=== PATIENT | female | born 2000 | race African-American/Black ===

== ENCOUNTER 2019-05-25 11:53 | Emergency (ER) | payer SELFPAY ==
[2019-05-25 12:16] VITALS: BP 150/69
--- NOTE | 2019-05-25 13:09 | ER Document Report ---
HPI - HPI Time Seen by Provider: 05/25/19 12:48 Pain Level: 5 Context: Healthy 19-year-old female presents to the emergency department with left lower leg pain. Patient states that it is slightly swollen, painful, slightly red. This is been going on for 2 days. Patient states she has no fevers or chills, no body aches, no recent illness, is not on oral contraceptives, is not a smoker. No recent lengthy travel or immobilization, no cancer. No nausea or vomiting. No other complaints - REPRODUCTIVE Reproductive: DENIES: : - MUSCULOSKELETAL Musculoskeletal: REPORTS: Extremity pain - left leg Past Medical History - Social History Smoking Status: Never Smoker Frequency of alcohol use: None Drug Abuse: None Family History: None Patient has suicidal ideation: No Patient has homicidal ideation: No Vertical Provider Document - CONSTITUTIONAL Notes: PHYSICAL EXAMINATION: Reviewed vital signs and charting by RN GENERAL: Alert, interacts well. No acute distress. HEAD: Normocephalic, atraumatic. EYES: Pupils equal and round. Extraocular movements intact. ENT: Oral mucosa moist, tongue midline. EXTREMITIES: Moves all 4 extremities spontaneously. No edema, No cyanosis. PSYCH: Normal affect, normal mood. SKIN: Warm, dry, normal turgor. 2 areas on the lateral and posterior left lower extremity with areas of induration approximately 2 cm. - INFECTION CONTROL TRAVEL OUTSIDE OF THE [place] IN LAST 30 DAYS: No Course - Re-evaluation Re-evalutation: 05/25/19 13:08 Well-appearing and nontoxic, vital signs within normal limits. Ultrasound did not show any fluid pocket or any area amenable to incision and drainage. Patient will be placed on a 5-day course of Keflex and has been given strict return precautions. Patient is not an IV drug user or has no history of MRSA. She is PERC negative. Stable for discharge. - Vital Signs Vital signs: Temp Pulse Resp BP Pulse Ox 98.6 F 79 18 150/69 H 99 05/25/19 12:15 05/25/19 12:15 05/25/19 12:15 05/25/19 12:15 05/25/19 12:15 Discharge - Discharge Clinical Impression: Skin infection Condition: Good Disposition: HOME, SELF-CARE Additional Instructions: You were seen in the emergency department today for a skin infection on your left lower leg. They look like they could be developing abscesses but ultrasound did not show any fluid pockets there is nothing to incise here today. I am going to put you on a 5-day course of antibiotics to help clear up this infection. As we talked about, the antibiotics take 36 to 48 hours to start taking effect so please continue to take them until they are gone. You may not see resolution for a couple of days. Also, put hot compresses over the areas for 10 to 15 minutes at a time every couple of hours. Please return to the emergency department if you develop fevers, worsening pain, swelling, redness after being on antibiotics for 2 or 3 days, acute leg weakness, or you have any other concerning symptoms.
== END 2019-05-25 13:08 | disposition home or self-care (01) ==
LOC: ER 11:53
DX: L08.9 Local infection of the skin and subcutaneous tissue, unspecified (principal); M79.662 Pain in left lower leg
CPT/HCPCS: 99283

== ENCOUNTER 2019-09-06 18:06 | Emergency (ER) | payer SELFPAY ==
--- NOTE | 2019-09-06 18:15 | ER Document Report ---
HPI - HPI Time Seen by Provider: 09/06/19 18:11 Onset: Last week Onset/Duration: Persistent Quality of pain: Burning Pain Level: 3 Context: Patient presents complaining of hematuria and dysuria. Patient states she had symptoms for the past week. No fever. Patient reports mild suprapubic tenderness. No nausea or vomiting. Associated Symptoms: denies: Fever, Nausea, Vomiting Exacerbated by: Denies Relieved by: Denies Similar symptoms previously: Yes Recently seen / treated by doctor: No - ROS ROS below otherwise negative: Yes Systems Reviewed and Negative: Yes All other systems reviewed and negative - CONSTITUTIONAL Constitutional: DENIES: Fever, Chills - GASTROINTESTINAL Gastrointestinal: REPORTS: Abdominal Pain, Nausea - URINARY Urinary: REPORTS: Dysuria - REPRODUCTIVE LMP: 08/24/19 Reproductive: DENIES: : - MUSCULOSKELETAL Musculoskeletal: DENIES: Back Pain - DERM Skin Color: Normal Skin Problems: None Past Medical History - General Information source: Patient - Social History Smoking Status: Never Smoker Chew tobacco use (# tins/day): No Frequency of alcohol use: None Drug Abuse: None Family History: None Patient has suicidal ideation: No Patient has homicidal ideation: No - Medical History Medical History: Negative Surgical Hx: Negative Vertical Provider Document - CONSTITUTIONAL Agree With Documented VS: Yes Exam Limitations: No Limitations General Appearance: WD/WN, No Apparent Distress - INFECTION CONTROL TRAVEL OUTSIDE OF THE [place] IN LAST 30 DAYS: No - HEENT HEENT: Atraumatic, Normocephalic - NECK Neck: Normal Inspection, Supple - RESPIRATORY Respiratory: Breath Sounds Normal, No Respiratory Distress - CARDIOVASCULAR Cardiovascular: Regular Rate, Regular Rhythm - GI/ABDOMEN Gastrointestinal: Abdomen Soft, Abdomen Tender - Suprapubic - BACK Back: Normal Inspection. negative: CVA Tenderness-Right, CVA Tenderness-Left - MUSCULOSKELETAL/EXTREMETIES Musculoskeletal/Extremeties: KARLA FROST - NEURO Level of Consciousness: Awake, Alert, Appropriate Motor/Sensory: No Motor Deficit - DERM Integumentary: Warm, Dry, No Rash Course - Re-evaluation Re-evalutation: 09/06/19 19:21 Patient with UTI, no concern for obstructive uropathy. No flank tenderness, no fever. Patient with stable vital signs. Urine will be cultured at this time. Good return precautions discussed with patient. - Laboratory Laboratory results interpreted by me: 09/06/19 19:21 Labs- Entire Visit 09/06/19 18:23 Urine Color YELLOW Urine Appearance SLIGHTLY-CLOUDY Urine pH 7.0 Ur Specific [place] 1.021 Urine Protein 100 H Urine Glucose (UA) NEGATIVE Urine Ketones NEGATIVE Urine Blood MODERATE H Urine Nitrite POSITIVE H Urine Bilirubin NEGATIVE Urine Urobilinogen 2.0 H Ur Leukocyte Esterase MODERATE H Urine WBC (Auto) >182 Urine RBC (Auto) 42 Urine Bacteria (Auto) 2+ Urine WBC Clumps MOD Squamous Epi Cells Auto 1 U Non-Squamous Epis Auto 2 Urine Mucus (Auto) OCC Urine Ascorbic Acid NEGATIVE Urine HCG, Qual NEGATIVE Discharge - Discharge Clinical Impression: UTI (urinary tract infection) Qualifiers: Urinary tract infection type: site unspecified Hematuria presence: with hematuria Qualified Code(s): N39.0 - Urinary tract infection, site not specified Condition: Stable Disposition: HOME, SELF-CARE Instructions: Cephalexin ([facility]), Urinary Anesthetic Agent ([facility]), Urinary Tract Infection ([facility]) Additional Instructions: Return immediately for any new or worsening symptoms Followup with your primary care provider, call tomorrow to make a followup appointment Prescriptions: Cephalexin Monohydrate [Keflex 500 mg Capsule] 500 mg PO BID 5 Days #14 capsule Phenazopyridine HCl [Pyridium 200 mg Tablet] 200 mg PO TID #15 tablet
[2019-09-06 19:06] LABS: APPEARANCE,URINE SLIGHTLY-CLOUDY; BILIRUBIN,URINE NEGATIVE (NEGATIVE); COLOR,URINE YELLOW; GLUCOSE, URINE NEGATIVE (NEGATIVE); KETONES,URINE NEGATIVE (NEGATIVE); LEUKOCYTE ESTERASE,URINE MODERATE (NEGATIVE); NITRITE,URINE POSITIVE (NEGATIVE); PROTEIN,URINE 100 mg/dL (NEGATIVE); URINE SPECIFIC GRAVITY 1.021
[2019-09-06] MEDS ORDERED: CEPHALEXIN 500 MG CAPSULE PO ONE (19:20)
[2019-09-06] MEDS ORDERED: PHENAZOPYRIDINE HCL 200 MG TABLET PO ONE (19:20)
[2019-09-06 19:43] VITALS: BP 146/78
== END 2019-09-06 19:43 | disposition home or self-care (01) ==
LOC: ER 18:06
DX: N39.0 Urinary tract infection, site not specified (principal); R31.9 Hematuria, unspecified; R30.0 Dysuria; R10.9 Unspecified abdominal pain; R10.819 Abdominal tenderness, unspecified site
CPT/HCPCS: 99283; 87086; 81025; 87088; 81001; J3490; 87186

== ENCOUNTER 2020-01-05 09:10 | Emergency (ER) | payer SELFPAY ==
--- NOTE | 2020-01-05 10:19 | ER Document Report ---
ED GI/ - General Chief Complaint: Urinary Problem Stated Complaint: PAINFUL URINATION,ABDOMINAL PAIN Time Seen by Provider: 01/05/20 10:14 Primary Care Provider: [facility] [Provider Group] - Follow up as needed [facility] [Provider Group] - Follow up as needed Mode of Arrival: Ambulatory Information source: Patient Notes: Pt presents to the ED for c/o urinary sxs. Pt reports pain with urination, hematuria and frequency that started 4 days ago. Pt reports prior h/o UTI and states sxs feel similar to previous. Denies any fever, chills or flank pain. Pt is A&Ox4, breaths e/u, NAD. 19-year-old female presented to ED for complaint of urinary signs and symptoms. She has pain burning and frequency with urine she does have blood with the urine. She states is been going on for about 4 days. She does have a history of UTIs in the past. She is alert oriented respirations regular nonlabored speaking in full sentences. She does not have any symptoms of fever chills flank pain. She states her last menstrual period was November 02. TRAVEL OUTSIDE OF THE [place] IN LAST 30 DAYS: No - HPI Patient complains to provider of: Pelvic pain, Other - Burning and frequency urgency with urine Onset: Other - 4 days Timing/Duration: Gradual Quality of pain: Burning Severity at maximum: Mild Severity in ED: Moderate Pain Level: 3 Vaginal bleeding (Compared to normal period): None LMP: November 02 Associated symptoms: Urinary frequency, Urinary urgency, Other - Burning Exacerbated by: Other - Urination Relieved by: Denies Similar symptoms previously: Yes Recently seen / treated by doctor: No - Related Data Allergies/Adverse Reactions: No Known Allergies Allergy (Verified 09/06/19 18:10) Past Medical History - General Information source: Patient - Social History Smoking Status: Current Every Day Smoker Cigarette use (# per day): Yes - vape Frequency of alcohol use: None Drug Abuse: None Lives with: Family Family History: None, Reviewed & Not Pertinent Patient has suicidal ideation: No Patient has homicidal ideation: No - Past Medical History Cardiac Medical History: Reports: None Pulmonary Medical History: Reports: None EENT Medical History: Reports: None Neurological Medical History: Reports: None Endocrine Medical History: Reports: None Renal/ Medical History: Reports: None Malignancy Medical History: Reports: None GI Medical History: Reports: None Musculoskeletal Medical History: Reports None Skin Medical History: Reports None Psychiatric Medical History: Reports: None Traumatic Medical History: Reports: None Infectious Medical History: Reports: None Surgical Hx: Negative Past Surgical History: Reports: None - Immunizations Immunizations up to date: Yes Hx Diphtheria, Pertussis, Tetanus Vaccination: Yes Review of Systems - Review of Systems Constitutional: No symptoms reported EENT: No symptoms reported Cardiovascular: No symptoms reported Respiratory: No symptoms reported Gastrointestinal: No symptoms reported Genitourinary: Burning, Frequency, Urgency Female Genitourinary: No symptoms reported, Vaginal discharge Musculoskeletal: No symptoms reported Skin: No symptoms reported Hematologic/Lymphatic: No symptoms reported Neurological/Psychological: No symptoms reported Physical Exam - Vital signs Vitals: Temp Pulse Resp BP Pulse Ox 98.4 F 73 18 130/82 H 96 01/05/20 09:18 01/05/20 09:18 01/05/20 09:18 01/05/20 09:18 01/05/20 09:18 Interpretation: Normal - General General appearance: Appears well, Alert - HEENT Head: Normocephalic, Atraumatic Eyes: Normal Pupils: PERRL - Respiratory Respiratory status: No respiratory distress Chest status: Nontender Breath sounds: Normal Chest palpation: Normal - Cardiovascular Rhythm: Regular Heart sounds: Normal auscultation Murmur: No - Abdominal Inspection: Normal Distension: No distension Bowel sounds: Normal Tenderness: Nontender Organomegaly: No organomegaly - Back Back: Normal, Nontender - Extremities General upper extremity: Normal inspection, Nontender, Normal color, Normal ROM, Normal temperature General lower extremity: Normal inspection, Nontender, Normal color, Normal ROM, Normal temperature, Normal weight bearing. No: Jose's sign - Neurological Neuro grossly intact: Yes Cognition: Normal Orientation: AAOx4 [place] Coma Scale Eye Opening: Spontaneous Abelardo Coma Scale Verbal: Oriented Abelardo Coma Scale Motor: Obeys Commands Abelardo Coma Scale Total: 15 Speech: Normal Motor strength normal: LUE, RUE, LLE, RLE Sensory: Normal - Psychological Associated symptoms: Normal affect, Normal mood - Skin Skin Temperature: Warm Skin Moisture: Dry Skin Color: Normal Course - Re-evaluation Re-evalutation: 01/05/20 22:11 Results were discussed with patient. GC and Chlamydia results were not back yet at time of discharge. Patient was treated with azithromycin and Rocephin prophylactically as she stated she thought she might have something more than just a UTI. - Vital Signs Vital signs: Temp Pulse Resp BP Pulse Ox 98.4 F 69 18 135/66 H 100 01/05/20 09:18 01/05/20 11:29 01/05/20 11:29 01/05/20 11:29 01/05/20 11:29 - Laboratory Laboratory results interpreted by me: 01/05/20 09:50 Urine Protein 100 H Urine Blood MODERATE H Urine Nitrite (Reflex) POSITIVE H Leukocyte Esterase Rfl LARGE H Urine Ascorbic Acid 20 H Discharge - Discharge Clinical Impression: UTI (urinary tract infection) Qualifiers: Urinary tract infection type: acute cystitis Hematuria presence: with hematuria Qualified Code(s): N30.01 - Acute cystitis with hematuria Vaginitis Qualifiers: Chronicity: acute Qualified Code(s): N76.0 - Acute vaginitis Condition: Stable Disposition: HOME, SELF-CARE Instructions: [facility] [place] Additional Instructions: URINARY TRACT INFECTION: Your evaluation indicates that you have a urinary tract infection. This is due to germs growing in the bladder. This is a common problem. This infection usually responds quickly to antibiotics. Your antibiotic should be taken exactly as prescribed. Drink plenty of fluids -- three to four quarts a day. Occasionally, a bladder anesthetic will be prescribed to help stop the feeling of urgency until the antibiotic has a chance to clear the infection. This may cause your urine to be dark orange. Certain urine infections require a culture. If the doctor obtained a culture, the results will be back in two days. You should call to see if a change in treatment is needed. A repeat urinalysis after you finish treatment is often recommended. The physician will let you know if further testing is required. Call the doctor if you develop fever, chills, flank pain, inability to urinate, or blood in the urine. VAGINITIS: Your exam shows that you have vaginitis, a vaginal infection. The infection can be caused by a many different organisms, including trichomonas or Gardnerella. The usual symptoms are vaginal irritation and discharge. The treatment is usually antibiotics such as Flagyl. Laboratory tests can determine which germ is responsible. Use the medication as prescribed. Because this infection can be transmitted sexually, your sexual partner may need to be checked and treated also. If your physician has not discussed this with you, please check before resuming sexual relations. If a culture shows gonorrhea or chlamydia, the infection must be reported to the health department. Call the doctor if you develop pelvic pain, fever, or problems with urination, or if you don't improve as expected. Rocephin You have been given an injection of an antibiotic called Rocephin (ceftriaxone). Sometimes the injection must be combined with antibiotic pills. For some infections, such as an uncomplicated ear infection, Rocephin provides all the antibiotic that's needed. The antibiotic will be in your body for about two days. For serious infections, we usually repeat doses of Rocephin daily. Side effects are very unusual following a shot. Women may develop vaginal yeast infections, and babies can get yeast (thrush) in the mouth following the use of antibiotics. Contact your physician if you have symptoms with this medication. Allergy to this antibiotic can result in hives, wheezing, faintness, or itching. If symptoms of allergy occur, call the doctor at once. AZITHROMYCIN: Azithromycin (Zithromax) is a broad spectrum antibiotic in the same class as erythromycin. It can treat a variety of bacterial infections, but is most frequently used for respiratory infections. Azithromycin is extremely long-lasting. It accumulates in body tissues and continues to kill bacteria for many days. In order to improve absorption, Azithromycin should be taken at least one hour before or two hours after a meal. It does not have the same strong tendency to upset the stomach as erythromycin and is usually very well tolerated. Patients who have had a rash or other true allergic reactions to erythromycin should not take this medication. Call if you develop gastrointestinal distress, severe diarrhea, rash, hives, itching, or shortness of breath. NITROFURANTOIN (MACRODANTIN, MACROBID): You have received a prescription for nitrofurantoin (Macrodantin). This antibiotic is used for urinary tract infections. Women who are or nursing should notify the physician before taking this medicine. If you have ever had a problem caused by this medication in the past, be sure the physician is aware of it. Common side effects of this medicine include nausea, vomiting, or decreased appetite. Notify your physician if these side effects become severe. Immediately stop this medicine and call the physician if you develop cough, shortness of breath, chest pain, weakness, jaundice (yellow color of the skin and whites of the eyes), or a skin rash. URINARY ANESTHETIC AGENT: You have been given a medication (Pyridium) for urinary tract discomfort. This medicine numbs the lining of the bladder and urethra, resulting in less pain, burning, and urgency. You may take it as needed, according to ins tructions. When the symptoms resolve, you can stop this medication (be sure to continue any other medications the doctor has given you). This medicine turns the urine a dark orange. It may stain underwear. Occasionally, it can cause nausea. Return for evaluation if there are any unexpected effects, such as itching, hives, or shortness of breath. FOLLOW-UP CARE: If you have been referred to a physician for follow-up care, call the physicians office for an appointment as you were instructed or within the next two days. If you experience worsening or a significant change in your symptoms, notify the physician immediately or return to the Emergency Department at any time for re-evaluation. Prescriptions: Nitrofurantoin Monohyd/M-Cryst [Macrobid 100 mg Capsule] 100 mg PO BID #20 cap Phenazopyridine HCl [Pyridium 100 Mg Tablet] 100 mg PO TIDP PRN #14 tablet PRN Reason: Forms: Elevated Blood Pressure Referrals: [facility] [Provider Group] - Follow up as needed [facility] [Provider Group] - Follow up as needed
[2020-01-05 10:33] LABS: APPEARANCE,URINE CLOUDY; BILIRUBIN,URINE NEGATIVE (NEGATIVE); COLOR,URINE YELLOW; GLUCOSE, URINE NEGATIVE (NEGATIVE); KETONES,URINE NEGATIVE (NEGATIVE); PROTEIN,URINE 100 mg/dL (NEGATIVE); URINE SPECIFIC GRAVITY 1.017; UROBILINOGEN,URINE NEGATIVE mg/dL (<2.0)
[2020-01-05] MEDS ORDERED: NITROFURANTOIN MONOHYD/M-CRYST 100 MG CAPSULE PO ONE (10:49)
[2020-01-05 11:00] LABS: BACTERIA (WET MOUNT) 4+ BACTERIA SEEN; EPITHELIALS (WET MOUNT) 3+ EPITHELIALS SEEN; RBCS (WET MOUNT) FEW RBCS SEEN; T.VAGINALIS (WET MOUNT) NO TRICHOMONAS SEEN; WBCS (WET MOUNT) 1+ WBCS SEEN; YEAST (WET MOUNT) NO YEAST SEEN
[2020-01-05] MEDS ORDERED: PHENAZOPYRIDINE HCL 100 MG TABLET PO ONE (11:17)
[2020-01-05] MEDS ORDERED: CEFTRIAXONE INJ 250 MG VIAL IM ONE (11:19)
[2020-01-05] MEDS ORDERED: AZITHROMYCIN 250 MG TABLET PO ONE (11:19)
[2020-01-05] MEDS ORDERED: LIDOCAINE 1% INJ-PF (10 MG/ML) 30 ML SDV INJ ONE (11:19)
[2020-01-05 11:30] VITALS: BP 135/66
[2020-01-05 12:24] LABS: CHLAM PCR NOT DETECTED (NOT DETECT)
== END 2020-01-05 11:46 | disposition home or self-care (01) ==
LOC: ER 09:10
DX: N30.01 Acute cystitis with hematuria (principal); N76.0 Acute vaginitis; F17.290 Nicotine dependence, other tobacco product, uncomplicated
CPT/HCPCS: 99284; 96372; 36415; 87086; 87210; 81025; 87088; 81001; 87186; 87491; 87591; J3490 ×2; J0696; J8499